=== PATIENT | female | born 1960 | race Caucasian/White ===

== ENCOUNTER 2019-10-29 16:56 | Inpatient (IN) | payer SELFPAY ==
[~2019-10-29] VITALS: Ht 157.5 cm; Wt 37.8 kg
[2019-10-29 17:16] LABS: BASOPHILS % (AUTO) 0.2 % (0.0-5.0); EOSINOPHILS % (AUTO) 0.5 % (0.0-8.0); HEMATOCRIT 39.3 % (36-48); LYMPHOCYTES % (AUTO) 6.3 % (21.0-51.0); MEAN CORPUSCULAR HEMOGLOBIN 30.5 pg (27.0-33.0); MEAN CORPUSCULAR HGB CONC 33.3 g/dL (32.0-36.0); MEAN CORPUSCULAR VOLUME 91.4 fL (79-99); MONOCYTES % (AUTO) 6.8 % (3.0-13.0); NEUTROPHILS % (AUTO) 85.8 % (40.0-77.0); PLATELET COUNT (AUTO) 209 K/uL (130-400); RED CELL DISTRIBUTION WIDTH 13.2 % (11.0-15.5); WHITE BLOOD COUNT (AUTO) 15.1 K/uL (4.8-10.8)
[2019-10-29 17:30] LABS: POTASSIUM 3.7 mmol/L (3.5-5.1)
[2019-10-29] MEDS ORDERED: IPRATROPIUM/ALBUTEROL SULFATE 3 ML SOLUTION IH ONE ×2 (17:43→23:37)
[2019-10-29 17:46] LABS: BAND NEUTROPHILS % (MANUAL) 16 % (0-2); LYMPHOCYTES % (MANUAL) 2 % (22-44); MAN.DIFF COMMENT-IMPRESSION MANUAL DIFFERENTIAL; MONOCYTES % (MANUAL) 4 % (2-9); PLATELET MORPHOLOGY COMMENT ADEQUATE; REACTIVE LYMPHOCYTES 3 % (0-0); SEGMENTED NEUTROPHILS % 75 % (40-70)
[2019-10-29 17:58] LABS: ABG BASE EXCESS -2.1 mmol/L (-2.0-3.0); ABG HCO3 20.5 mmol/L (21.0-28.0); ABG OXYGEN SATURATION 87.6 % (95.0-99.0); ABG PCO2 29 mmHg (32-45)
[2019-10-29] MEDS ORDERED: ACETAMINOPHEN EXTRA STRENGTH 500 MG TABLET ONE (19:38)
[2019-10-29 19:51] LABS: ALBUMIN 3.7 g/dL (3.5-5.0); BILIRUBIN,DIRECT 0.1 mg/dL (0.0-0.3); BILIRUBIN,TOTAL 0.3 mg/dL (0.2-1.0); TOTAL PROTEIN, SERUM 7.8 g/dL (6.0-8.3)
[2019-10-29] MEDS ORDERED: CEFTRIAXONE SODIUM 1 GM ONE (22:28)
[2019-10-29] MEDS ORDERED: AZITHROMYCIN 250 MG TABLET PO ONE (22:29)
[2019-10-29] MEDS: METHYLPREDNISOLONE SOD SUCC 125MG/2ML VIAL IV SCH (23:15)
[2019-10-29] MEDS ORDERED: LACTULOSE 20 GM/30 ML UDCUP PO PRN (23:15)
[2019-10-29] MEDS: CEFTRIAXONE SODIUM 1 GM IV SCH (23:15)
[2019-10-29] MEDS ORDERED: ONDANSETRON HCL 4 MG/2 ML VIAL IV PRN (23:15)
[2019-10-29] MEDS: AZITHROMYCIN 500MG+NS 250ML 250 ML IV SCH (23:15)
[2019-10-29] MEDS ORDERED: METHYLPREDNISOLONE SOD SUCC 40MG/ML 1ML ONE (23:45)
[2019-10-30] MEDS ORDERED: SODIUM CHLORIDE 3% FOR INHALATION 4 ML/AMP VIAL.NEB IH ONE ×2 (00:39→06:10)
[2019-10-30 01:04] VITALS: BP 97/43
[2019-10-30 03:25] VITALS: BP 106/70
[2019-10-30 04:07] LABS: BASOPHILS % (AUTO) 0.2 % (0.0-5.0); EOSINOPHILS % (AUTO) 3.3 % (0.0-8.0); HEMATOCRIT 37.2 % (36-48); LYMPHOCYTES % (AUTO) 2.8 % (21.0-51.0); MEAN CORPUSCULAR HEMOGLOBIN 30.2 pg (27.0-33.0); MEAN CORPUSCULAR HGB CONC 33.3 g/dL (32.0-36.0); MEAN CORPUSCULAR VOLUME 90.5 fL (79-99); MONOCYTES % (AUTO) 3.9 % (3.0-13.0); NEUTROPHILS % (AUTO) 89.5 % (40.0-77.0); PLATELET COUNT (AUTO) 201 K/uL (130-400); RED BLOOD CELL COUNT(AUTO) 4.11 MIL/uL (4.00-5.50); WHITE BLOOD COUNT (AUTO) 11.7 K/uL (4.8-10.8)
[2019-10-30 04:34] LABS: CREATININE 0.8 mg/dL (0.5-1.5)
[2019-10-30] MEDS: IPRATROPIUM/ALBUTEROL SULFATE 3 ML SOLUTION IH SCH ×5 (06:34→23:27)
[2019-10-30] MEDS: METHYLPREDNISOLONE SOD SUCC 125MG/2ML VIAL IV SCH ×3 (06:56→20:26)
[2019-10-30 07:23] VITALS: BP 103/58
[2019-10-30] MEDS: FAMOTIDINE 20MG TAB 20 MG TAB PO SCH ×2 (08:36→20:26)
[2019-10-30] MEDS: ACETAMINOPHEN 325 MG TAB PO PRN ×2 (08:37→16:34)
[2019-10-30] MEDS: ENOXAPARIN SODIUM 30 MG/0.3 ML SQ SCH (08:38)
[2019-10-30 11:00] VITALS: BP 92/52
[2019-10-30 15:00] VITALS: BP 92/58
--- NOTE | 2019-10-30 18:34 | NUR ---
D/C PLAN CM spoke to pt regarding d/c planning. Pt is ind. with ADL's. States spouse can assist in care if needed. Denies having any DME at home. [facility] provided community resources. [place] family and friends that can assist in care if needed. Plan to home. CM to f/u. Addendum: 10/30/19 at 1835 by SHERIN CHONG CM Amended: Links added.
[2019-10-30 19:45] VITALS: BP 86/53
[2019-10-30] MEDS: CEFTRIAXONE SODIUM 1 GM IV SCH (20:26)
[2019-10-30] MEDS: AZITHROMYCIN 500MG+NS 250ML 250 ML IV SCH (20:26)
[2019-10-31] VITALS (7 sets, daily range): BP systolic 86–100; BP diastolic 44–60
[2019-10-31 05:10] LABS: BASOPHILS % (AUTO) 0.1 % (0.0-5.0); HEMATOCRIT 33.9 % (36-48); LYMPHOCYTES % (AUTO) 2.9 % (21.0-51.0); MEAN CORPUSCULAR HEMOGLOBIN 30.6 pg (27.0-33.0); MEAN CORPUSCULAR HGB CONC 33.6 g/dL (32.0-36.0); MEAN CORPUSCULAR VOLUME 90.9 fL (79-99); MONOCYTES % (AUTO) 2.9 % (3.0-13.0); NEUTROPHILS % (AUTO) 93.3 % (40.0-77.0); PLATELET COUNT (AUTO) 202 K/uL (130-400); RED BLOOD CELL COUNT(AUTO) 3.73 MIL/uL (4.00-5.50); RED CELL DISTRIBUTION WIDTH 13.2 % (11.0-15.5); WHITE BLOOD COUNT (AUTO) 12.5 K/uL (4.8-10.8)
[2019-10-31] MEDS: METHYLPREDNISOLONE SOD SUCC 125MG/2ML VIAL IV SCH ×2 (06:04→13:12)
--- NOTE | 2019-10-31 07:15 | NUR ---
RECEIVED PATIENT LAYING ON BED WITH NO C/O SOB. VENTIMASK IS ON. PATIENT VOICED THAT RIGHT AC IV WILSON BUT SHE REFUSED FOR ANOTHER PIV TO BE INSERTED. I FLUSHED THE IV AND LINE HAS GOOD BLOOD RETURN. PATIENT SAID TO LEAVE IV AT THIS TIME. SHE REMAINS ON DROPLET ISOLATION FOR PNEUMONIA. CALL LIGHT WITHIN REACH.
[2019-10-31] MEDS: IPRATROPIUM/ALBUTEROL SULFATE 3 ML SOLUTION IH SCH ×3 (07:51→18:51)
[2019-10-31] MEDS: FAMOTIDINE 20MG TAB 20 MG TAB PO SCH ×2 (09:39→19:57)
[2019-10-31] MEDS: ENOXAPARIN SODIUM 30 MG/0.3 ML SQ SCH (09:39)
[2019-10-31] MEDS: ACETAMINOPHEN 325 MG TAB PO PRN ×3 (09:44→19:57)
--- NOTE | 2019-10-31 12:10 | NUR ---
PATIENT IS STABLE ON 4L PER NASAL CANNULA. WILL CONTINUE TO MONITOR.
[2019-10-31] MEDS ORDERED: LORAZEPAM 2 MG/ML 1 ML VIAL IVP ONE (13:45)
--- NOTE | 2019-10-31 14:02 | NUR ---
RD NOTIFICATION DIET: REGULAR. PO INTAKE 25% AND HAS IMPROVING APPETITE, PER PT. BMI IS 15.5; CLASSIFIED SEVERE UNDERWEIGHT. SHE STATED THAT SHE LOST WEIGHT WHEN HER GOT SICK A COUPLE OF MONTHS AGO. PT STATED WEIGHING 99 POUNDS ABOUT 3 MONTHS AGO AND NOW WEIGHS 84 POUNDS, THAT IS A 15% WEIGHT LOSS CHANGE IN APPROX. 3 MONTHS. PT WITH SEVERE NUTRITION RELATED PHYSICAL SIGNS OF MUSCLE AND FAT LOSS INDICATING SEVERE PROTEIN/ CALORIE MALNUTRITION. RD PROVIDED MALNUTRITION DIET AND NUTRITION EDUCATION AND PROVIDED A LIST OF FOODS HIGH IN CALORIES AND PROTEIN. SHE VERBALIZED UNDERSTANDING. RD ENCOURAGED ENSURE WITH MEALS AND PT AGREED TO CONSUME. RD RECOMMENDS ADD ENSURE TID MALNUTRITION EDU PROVIDED Addendum: 10/31/19 at [address] Amended: Links added.
--- NOTE | 2019-10-31 14:07 | NUR ---
MALNUTRITION EDU COMPLETED DIET: REGULAR. PO INTAKE 25% AND HAS IMPROVING APPETITE, PER PT. BMI IS 15.5; CLASSIFIED SEVERE UNDERWEIGHT. SHE STATED THAT SHE LOST WEIGHT WHEN HER GOT SICK A COUPLE OF MONTHS AGO. PT STATED WEIGHING 99 POUNDS ABOUT 3 MONTHS AGO AND NOW WEIGHS 84 POUNDS, THAT IS A 15% WEIGHT LOSS CHANGE IN APPROX. 3 MONTHS. PT WITH SEVERE NUTRITION RELATED PHYSICAL SIGNS OF MUSCLE AND FAT LOSS INDICATING SEVERE PROTEIN/ CALORIE MALNUTRITION. RD PROVIDED MALNUTRITION DIET AND NUTRITION EDUCATION AND PROVIDED A LIST OF FOODS HIGH IN CALORIES AND PROTEIN. SHE VERBALIZED UNDERSTANDING. RD ENCOURAGED ENSURE WITH MEALS AND PT AGREED TO CONSUME. Addendum: 10/31/19 at [address] Amended: Links added.
[2019-10-31] MEDS: CEFTRIAXONE SODIUM 1 GM IV SCH (19:56)
--- NOTE | 2019-10-31 20:00 | NUR ---
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 INFORMED OF PT TEMP, AND ALSO PT REFUSING AZITHROMYCIN. SHES STATES LAST NIGHT WHEN GIVEN, SHE HAD A HORRIBLE NIGHT DUE TO DIAPHORETIC EPISODES AND MANUEL HER FEEL UNWELL. DUGLAS ORDERED BLOOD CULTURE, AND TO HOLD AZITHROMYCIN FOR TONIGHT AND UPDATE MD IN THE AM.
[2019-10-31] MEDS: AZITHROMYCIN 500MG+NS 250ML 250 ML IV SCH (21:38)
[2019-11-01] MEDS: IPRATROPIUM/ALBUTEROL SULFATE 3 ML SOLUTION IH SCH ×5 (00:07→23:56)
[2019-11-01] MEDS: METHYLPREDNISOLONE SOD SUCC 125MG/2ML VIAL IV SCH (01:46)
[2019-11-01 04:22] VITALS: BP 85/59
[2019-11-01 04:23] LABS: HEMATOCRIT 33.2 % (36-48); MEAN CORPUSCULAR HEMOGLOBIN 30.7 pg (27.0-33.0); MEAN CORPUSCULAR VOLUME 90.2 fL (79-99); PLATELET COUNT (AUTO) 227 K/uL (130-400); RED BLOOD CELL COUNT(AUTO) 3.68 MIL/uL (4.00-5.50); RED CELL DISTRIBUTION WIDTH 13.2 % (11.0-15.5); WHITE BLOOD COUNT (AUTO) 14.4 K/uL (4.8-10.8)
[2019-11-01 04:31] LABS: CREATININE 0.8 mg/dL (0.5-1.5); POTASSIUM 4.1 mmol/L (3.5-5.1)
[2019-11-01 04:46] LABS: BAND NEUTROPHILS % (MANUAL) 4 % (0-2); LYMPHOCYTES % (MANUAL) 3 % (22-44); MAN.DIFF COMMENT-IMPRESSION MANUAL DIFFERENTIAL; MONOCYTES % (MANUAL) 5 % (2-9); PLATELET MORPHOLOGY COMMENT ADEQUATE; SEGMENTED NEUTROPHILS % 88 % (40-70)
[2019-11-01] MEDS: ACETAMINOPHEN 325 MG TAB PO PRN (05:27)
[2019-11-01] MEDS: FAMOTIDINE 20MG TAB 20 MG TAB PO SCH ×2 (07:09→19:50)
[2019-11-01] MEDS: ENOXAPARIN SODIUM 30 MG/0.3 ML SQ SCH (07:10)
--- NOTE | 2019-11-01 07:40 | NUR ---
ASSESSMENT PT IS AAOX3 DENIES CP DENIES SOB DENIES NV AT THIS TIME, RESTING IN BED. NO COMPLAINTS. CALL LIGHT WITHIN REACH.
[2019-11-01 08:12] VITALS: BP 84/50
[2019-11-01] MEDS: CEFTRIAXONE SODIUM 1 GM IV SCH ×2 (11:25→19:49)
[2019-11-01 11:45] VITALS: BP 97/55
[2019-11-01 16:14] VITALS: BP 96/54
--- NOTE | 2019-11-01 18:00 | NUR ---
STATUS DENIES PAIN THROUGHOUT THE DAY. RESTING IN BED. CALL LIGHT WITHIN REACH.
[2019-11-01 19:34] VITALS: BP 91/50
[2019-11-02] VITALS: BP 99/53
[2019-11-02] MEDS: ACETAMINOPHEN 325 MG TAB PO PRN ×2 (01:15→19:53)
[2019-11-02 03:55] LABS: BASOPHILS % (AUTO) 0.2 % (0.0-5.0); EOSINOPHILS % (AUTO) 0.3 % (0.0-8.0); HEMATOCRIT 31.7 % (36-48); LYMPHOCYTES % (AUTO) 6.2 % (21.0-51.0); MEAN CORPUSCULAR HEMOGLOBIN 30.4 pg (27.0-33.0); MEAN CORPUSCULAR HGB CONC 33.8 g/dL (32.0-36.0); MEAN CORPUSCULAR VOLUME 90.1 fL (79-99); MONOCYTES % (AUTO) 5.1 % (3.0-13.0); NEUTROPHILS % (AUTO) 87.1 % (40.0-77.0); PLATELET COUNT (AUTO) 235 K/uL (130-400); RED BLOOD CELL COUNT(AUTO) 3.52 MIL/uL (4.00-5.50); RED CELL DISTRIBUTION WIDTH 13.5 % (11.0-15.5); WHITE BLOOD COUNT (AUTO) 11.5 K/uL (4.8-10.8)
[2019-11-02 03:56] VITALS: BP 97/58
[2019-11-02 04:11] LABS: B-TYPE NATRIURETIC PEPTIDE 181 pg/mL (0-100)
[2019-11-02 04:20] LABS: CREATININE 0.8 mg/dL (0.5-1.5); MAGNESIUM 1.8 mg/dL (1.80-2.40); PHOSPHORUS 2.9 mg/dL (2.5-4.9); POTASSIUM 4.1 mmol/L (3.5-5.1)
[2019-11-02] MEDS: IPRATROPIUM/ALBUTEROL SULFATE 3 ML SOLUTION IH SCH ×6 (06:40→22:17)
--- NOTE | 2019-11-02 07:30 | NUR ---
ASSESSMENT PT IS AAOX3 DENIES CP DENIES SOB DENIES NV AT THIS TIME, RESTING IN BED. HAD SOME SHORTNESS OF BREATH EARLIER WHEN RT ATTEMPTED TO WEAN OFF O2. PT IS ON VENTI MASK. SATURATING LOW TO MID 90S. STATES SHE FEELS BETTER. CALL LIGHT WITHIN REACH.
[2019-11-02] MEDS: FAMOTIDINE 20MG TAB 20 MG TAB PO SCH ×2 (07:42→13:05)
[2019-11-02] MEDS: ENOXAPARIN SODIUM 40 MG/0.4 ML SYRINGE SQ SCH (07:42)
[2019-11-02] MEDS: CEFTRIAXONE SODIUM 1 GM IV SCH (07:42)
[2019-11-02 08:21] VITALS: BP 101/58
[2019-11-02] MEDS ORDERED: PREDNISONE 20 MG TABLET PO SCH (09:00)
[2019-11-02] MEDS ORDERED: SODIUM CHLORIDE 3% FOR INHALATION 4 ML/AMP VIAL.NEB IH ONE (10:12)
[2019-11-02] MEDS ORDERED: SODIUM CHLORIDE 3% FOR INHALATION 4 ML/AMP VIAL.NEB IH SCH (10:15)
--- NOTE | 2019-11-02 10:15 | NUR ---
DR ZAVALA ROUNDED SAW PATIENT ORDERS RECEIVED
[2019-11-02] MEDS: METHYLPREDNISOLONE SOD SUCC 40MG/ML 1ML IVP SCH ×2 (10:33→18:33)
[2019-11-02 11:49] VITALS: BP 99/53
--- NOTE | 2019-11-02 12:45 | NUR ---
Roshni LIEBERMAN SAW PT, ORDERS RECEIVED
[2019-11-02 12:51] LABS: ABG BASE EXCESS 0.8 mmol/L (-2.0-3.0); ABG HCO3 23.5 mmol/L (21.0-28.0); ABG OXYGEN SATURATION 93.8 % (95.0-99.0); ABG PCO2 32 mmHg (32-45)
[2019-11-02] MEDS: ACETYLCYSTEINE 20% 200MG/ML 4ML VIAL IH SCH ×3 (13:37→22:17)
[2019-11-02] MEDS ORDERED: IOHEXOL-350 75 ML VIAL IV ONE (14:39)
[2019-11-02] MEDS: SODIUM CHLORIDE 0.9% 1000ML 1,000 ML IV SCH (15:05)
--- NOTE | 2019-11-02 15:48 | NUR ---
DR HUNTER AND DR ZAVALA ROUNDED UPDATED ON CT ANGIO RESULTS. ORDERS RECEIVED.
[2019-11-02 15:55] VITALS: BP 95/60
[2019-11-02 16:34] LABS: INR 0.87 (0.85-1.15); PARTIAL THROMBOPLASTIN TIME 26.6 SEC (26.3-35.5); PROTHROMBIN TIME 9.2 SEC (9.6-11.6)
[2019-11-02] MEDS ORDERED: HEPARIN SODIUM 5000UNIT/ML 1ML VIAL IJ SCH (16:45)
[2019-11-02] MEDS: HEPARIN 25000 UNITS/250 ML D5W 250 ML IV SCH (16:55)
--- NOTE | 2019-11-02 17:00 | NUR ---
HEPARIN PROTOCOL STARTED PER PROTOCOL REFER TO FLOW SHEET
[2019-11-02 19:45] VITALS: BP 103/52
[2019-11-02] MEDS ORDERED: DOXYCYCLINE HYCLATE 100 MG TABLET PO SCH (21:00)
[2019-11-02] MEDS: CEFAZOLIN SODIUM 1 GM VIAL IVP SCH (21:14)
[2019-11-02] MEDS: MIDODRINE HCL 5 MG TABLET PO SCH (21:14)
[2019-11-02 23:31] LABS: INR 0.9 (0.85-1.15); PROTHROMBIN TIME 9.5 SEC (9.6-11.6)
[2019-11-03] VITALS (7 sets, daily range): BP systolic 97–136; BP diastolic 52–78
[2019-11-03] MEDS: IPRATROPIUM/ALBUTEROL SULFATE 3 ML SOLUTION IH SCH ×6 (02:31→21:19)
[2019-11-03] MEDS: ACETYLCYSTEINE 20% 200MG/ML 4ML VIAL IH SCH ×6 (02:32→21:19)
[2019-11-03] MEDS: METHYLPREDNISOLONE SOD SUCC 40MG/ML 1ML IVP SCH ×3 (02:47→20:21)
[2019-11-03] MEDS: SODIUM CHLORIDE 0.9% 1000ML 1,000 ML IV SCH ×3 (03:35→20:20)
[2019-11-03] MEDS: CEFAZOLIN SODIUM 1 GM VIAL IVP SCH ×3 (05:01→20:20)
[2019-11-03 06:41] LABS: HEMATOCRIT 31.8 % (36-48); MEAN CORPUSCULAR HEMOGLOBIN 29.8 pg (27.0-33.0); MEAN CORPUSCULAR HGB CONC 32.7 g/dL (32.0-36.0); MEAN CORPUSCULAR VOLUME 91.1 fL (79-99); PLATELET COUNT (AUTO) 254 K/uL (130-400); RED BLOOD CELL COUNT(AUTO) 3.49 MIL/uL (4.00-5.50); RED CELL DISTRIBUTION WIDTH 13.5 % (11.0-15.5); WHITE BLOOD COUNT (AUTO) 6.2 K/uL (4.8-10.8)
[2019-11-03 07:07] LABS: B-TYPE NATRIURETIC PEPTIDE 212 pg/mL (0-100)
[2019-11-03] MEDS: BUDESONIDE 0.5 MG/2 ML INH IH SCH ×2 (07:19→19:25)
[2019-11-03] MEDS ORDERED: LEVOFLOXACIN 750 MG/D5W 150 ML 150 ML IV SCH (09:00)
[2019-11-03] MEDS: ENOXAPARIN SODIUM 40 MG/0.4 ML SYRINGE SQ SCH (09:04)
[2019-11-03] MEDS: MIDODRINE HCL 5 MG TABLET PO SCH ×3 (09:04→20:21)
[2019-11-03] MEDS: FAMOTIDINE 20MG TAB 20 MG TAB PO SCH ×2 (09:04→20:21)
[2019-11-03 09:09] LABS: ABG BASE EXCESS 3.2 mmol/L (-2.0-3.0); ABG HCO3 26.2 mmol/L (21.0-28.0); ABG OXYGEN SATURATION 95.1 % (95.0-99.0); ABG PCO2 35 mmHg (32-45)
[2019-11-03 09:33] LABS: CREATININE 0.6 mg/dL (0.5-1.5)
[2019-11-03] MEDS: WARFARIN SODIUM 5 MG TAB PO SCH (16:32)
[2019-11-03 17:36] LABS: INR 0.93 (0.85-1.15); PARTIAL THROMBOPLASTIN TIME 56.7 SEC (26.3-35.5); PROTHROMBIN TIME 9.8 SEC (9.6-11.6)
[2019-11-04] MEDS: ACETAMINOPHEN 325 MG TAB PO PRN ×3 (00:21→16:29)
[2019-11-04 01:15] LABS: INR 0.95 (0.85-1.15); PARTIAL THROMBOPLASTIN TIME 49.9 SEC (26.3-35.5)
[2019-11-04] MEDS: ACETYLCYSTEINE 20% 200MG/ML 4ML VIAL IH SCH ×6 (01:40→21:25)
[2019-11-04] MEDS: IPRATROPIUM/ALBUTEROL SULFATE 3 ML SOLUTION IH SCH ×6 (01:40→21:24)
[2019-11-04 03:53] LABS: BASOPHILS % (AUTO) 0.2 % (0.0-5.0); HEMATOCRIT 31.3 % (36-48); LYMPHOCYTES % (AUTO) 11.2 % (21.0-51.0); MEAN CORPUSCULAR HEMOGLOBIN 29.5 pg (27.0-33.0); MEAN CORPUSCULAR HGB CONC 31.9 g/dL (32.0-36.0); MEAN CORPUSCULAR VOLUME 92.3 fL (79-99); MONOCYTES % (AUTO) 6.6 % (3.0-13.0); NEUTROPHILS % (AUTO) 73.6 % (40.0-77.0); PLATELET COUNT (AUTO) 301 K/uL (130-400); RED BLOOD CELL COUNT(AUTO) 3.39 MIL/uL (4.00-5.50); RED CELL DISTRIBUTION WIDTH 13.5 % (11.0-15.5); WHITE BLOOD COUNT (AUTO) 6.1 K/uL (4.8-10.8)
[2019-11-04 03:55] VITALS: BP 105/52
[2019-11-04 04:07] LABS: PARTIAL THROMBOPLASTIN TIME 53.8 SEC (26.3-35.5); PROTHROMBIN TIME 10.5 SEC (9.6-11.6)
[2019-11-04 04:11] LABS: CREATININE 0.7 mg/dL (0.5-1.5); POTASSIUM 4.3 mmol/L (3.5-5.1)
[2019-11-04] MEDS: CEFAZOLIN SODIUM 1 GM VIAL IVP SCH ×3 (05:27→20:28)
[2019-11-04] MEDS: HEPARIN 25000 UNITS/250 ML D5W 250 ML IV SCH (05:29)
[2019-11-04 07:25] VITALS: BP 108/57
[2019-11-04] MEDS: BUDESONIDE 0.5 MG/2 ML INH IH SCH ×2 (07:35→19:38)
[2019-11-04] MEDS: METHYLPREDNISOLONE SOD SUCC 40MG/ML 1ML IVP SCH ×2 (08:48→20:28)
[2019-11-04] MEDS: MIDODRINE HCL 5 MG TABLET PO SCH ×3 (08:48→20:28)
[2019-11-04] MEDS: FAMOTIDINE 20MG TAB 20 MG TAB PO SCH ×2 (08:48→20:28)
[2019-11-04 11:29] VITALS: BP 113/64
[2019-11-04 15:18] VITALS: BP 108/60
[2019-11-04] MEDS: WARFARIN SODIUM 5 MG TAB PO SCH (16:23)
--- NOTE | 2019-11-04 16:23 | NUR ---
Nutrition education ILANA provided Coumadin Nutrition/Food and Drug Interaction education. ILANA reviewed reference materials. Pt with mulitple questions. RD answered all question. Pt verbalized understanding. Addendum: 11/04/19 at [address] Amended: Links added.
--- NOTE | 2019-11-04 16:27 | NUR ---
RD Follow Up Pt reports improving appetite upon visit. Intake at 50%, no report of GI distress. Pt likes [employer] Ensure. RD provided Coumadin Nutrition/Food and Drug Interaction education. Pt LBM 11/01/19. Pt monitored labs: BG 151, BNP 212. RD to continue to monitor. Please notify RD as additional nutrition concerns arise. thank you. Addendum: 11/04/19 at [address] RD Amended: Links added.
[2019-11-04] MEDS: FUROSEMIDE 10 MG/ML 2ML VIAL IV SCH (18:13)
[2019-11-04 20:00] VITALS: BP 112/57
[2019-11-04 23:32] VITALS: BP 125/67
[2019-11-05] MEDS: IPRATROPIUM/ALBUTEROL SULFATE 3 ML SOLUTION IH SCH ×7 (01:20→23:34)
[2019-11-05] MEDS: ACETYLCYSTEINE 20% 200MG/ML 4ML VIAL IH SCH ×6 (01:20→23:34)
[2019-11-05 03:41] VITALS: BP 110/58
[2019-11-05 03:48] LABS: BASOPHILS % (AUTO) 0.2 % (0.0-5.0); HEMATOCRIT 31.6 % (36-48); LYMPHOCYTES % (AUTO) 10.5 % (21.0-51.0); MEAN CORPUSCULAR HEMOGLOBIN 29.6 pg (27.0-33.0); MEAN CORPUSCULAR HGB CONC 32.6 g/dL (32.0-36.0); MEAN CORPUSCULAR VOLUME 90.8 fL (79-99); MONOCYTES % (AUTO) 8.4 % (3.0-13.0); NEUTROPHILS % (AUTO) 70.1 % (40.0-77.0); PLATELET COUNT (AUTO) 383 K/uL (130-400); RED BLOOD CELL COUNT(AUTO) 3.48 MIL/uL (4.00-5.50); RED CELL DISTRIBUTION WIDTH 13.3 % (11.0-15.5); WHITE BLOOD COUNT (AUTO) 6.2 K/uL (4.8-10.8)
[2019-11-05 04:18] LABS: CREATININE 0.7 mg/dL (0.5-1.5); POTASSIUM 4.1 mmol/L (3.5-5.1); THYROID STIMULATING HORMONE 0.57 uIU/mL (0.36-3.74)
[2019-11-05] MEDS: FUROSEMIDE 10 MG/ML 2ML VIAL IV SCH ×2 (06:05→15:08)
[2019-11-05] MEDS: CEFAZOLIN SODIUM 1 GM VIAL IVP SCH ×3 (06:05→20:17)
[2019-11-05 07:51] VITALS: BP 104/65
--- NOTE | 2019-11-05 08:15 | NUR ---
AM ASSESSMENT PT LAYING IN BED, HOB ELEVATED 30 DEGREES, WATCHING TV. DROPLET ISOLATION. A/O X 3. SON ON EXERTION. NO DISTRESS NOTED. VENTI MASK @ 40%. PT HAS BEEN GETTING OOB TO RESTRM BY HERSELF W/OUT O2. PT HAS TOLERATED WELL. DENIES CHEST PAIN OR DISCOMFORT. DENIES PALPITATIONS. TELE: SR. DENIES N/V AND/OR DIARRHEA. UP W/ASSISTANCE. HEPARIN GTT INFUSING @ 1900 UNITS/HR. INSTRUCTED TO CALL FOR ASSISTANCE. CALL KANG W/IN REACH.
[2019-11-05] MEDS: METHYLPREDNISOLONE SOD SUCC 40MG/ML 1ML IVP SCH ×2 (08:59→20:18)
[2019-11-05] MEDS: MIDODRINE HCL 5 MG TABLET PO SCH ×3 (08:59→20:17)
[2019-11-05] MEDS: FAMOTIDINE 20MG TAB 20 MG TAB PO SCH ×2 (08:59→20:17)
[2019-11-05 11:28] LABS: PARTIAL THROMBOPLASTIN TIME 75.8 SEC (26.3-35.5)
[2019-11-05 11:55] VITALS: BP 110/59
[2019-11-05] MEDS: HEPARIN 25000 UNITS/250 ML D5W 250 ML IV SCH (12:45)
[2019-11-05 12:49] LABS: INR 2.41 (0.85-1.15); PROTHROMBIN TIME 24.5 SEC (9.6-11.6)
--- NOTE | 2019-11-05 15:00 | NUR ---
ANTICOAGULATION INR 2.41. DR ZAVALA NOTIFIED. HEPARIN GTT DC'D @ THIS TIME. COUMADIN DOSE DECREASED TO 4MG PO DAILY. PT UPDATED ON PLAN OF CARE.
[2019-11-05] MEDS: WARFARIN SODIUM 5 MG TAB PO SCH (15:08)
[2019-11-05] MEDS: ACETAMINOPHEN 325 MG TAB PO PRN (15:09)
[2019-11-05 16:00] VITALS: BP 112/56
[2019-11-05] MEDS: BUDESONIDE 0.5 MG/2 ML INH IH SCH (19:07)
[2019-11-05 19:42] VITALS: BP 91/67
[2019-11-06] VITALS (7 sets, daily range): BP systolic 92–117; BP diastolic 54–68
[2019-11-06 05:16] LABS: INR 2.78 (0.85-1.15); PROTHROMBIN TIME 28.1 SEC (9.6-11.6)
[2019-11-06] MEDS: CEFAZOLIN SODIUM 1 GM VIAL IVP SCH (06:17)
[2019-11-06] MEDS ORDERED: FUROSEMIDE 10 MG/ML 2ML VIAL ONE (06:26)
[2019-11-06] MEDS: FUROSEMIDE 10 MG/ML 2ML VIAL IV SCH (06:27)
[2019-11-06] MEDS: ACETYLCYSTEINE 20% 200MG/ML 4ML VIAL IH SCH ×4 (06:55→23:29)
[2019-11-06] MEDS: IPRATROPIUM/ALBUTEROL SULFATE 3 ML SOLUTION IH SCH ×4 (06:55→23:29)
[2019-11-06] MEDS: BUDESONIDE 0.5 MG/2 ML INH IH SCH ×2 (07:19→18:36)
[2019-11-06] MEDS: METHYLPREDNISOLONE SOD SUCC 40MG/ML 1ML IVP SCH ×2 (08:21→22:07)
[2019-11-06] MEDS: MIDODRINE HCL 5 MG TABLET PO SCH ×3 (08:21→22:07)
[2019-11-06] MEDS: FAMOTIDINE 20MG TAB 20 MG TAB PO SCH ×2 (08:21→22:07)
[2019-11-06] MEDS: ACETAMINOPHEN 325 MG TAB PO PRN (10:10)
--- NOTE | 2019-11-06 13:00 | NUR ---
HOSPITALISTS NOTED TO BE ROUNDING ON PATIENT.
--- NOTE | 2019-11-06 13:17 | NUR ---
PATIENT CHANGED TO NASAL CANNULA PER HOSPITALIST. PATIENT STATES THAT SHE IS NOT CURRENTLY SHORT OF BREATH. PATIENT INSTRUCTED TO CALL IF SYMPTOMS WORSEN AND WILL CONTINUE TO MONITOR.
--- NOTE | 2019-11-06 13:47 | NUR ---
o2 SAT = 91% ON 4 L
--- NOTE | 2019-11-06 13:48 | NUR ---
PATIENT WITHOUT COMPLAINTS AND NO DISTRESS NOTED.
[2019-11-06] MEDS: WARFARIN SODIUM 2 MG TAB PO SCH (16:11)
[2019-11-07 03:50] VITALS: BP 103/70
[2019-11-07 03:55] LABS: BASOPHILS % (AUTO) 0.4 % (0.0-5.0); HEMATOCRIT 33.2 % (36-48); LYMPHOCYTES % (AUTO) 10.9 % (21.0-51.0); MEAN CORPUSCULAR HEMOGLOBIN 30.3 pg (27.0-33.0); MEAN CORPUSCULAR HGB CONC 33.1 g/dL (32.0-36.0); MEAN CORPUSCULAR VOLUME 91.5 fL (79-99); MONOCYTES % (AUTO) 5.4 % (3.0-13.0); NEUTROPHILS % (AUTO) 78.1 % (40.0-77.0); NUCLEATED RED BLOOD CELLS 0.3 % (0.0-0.19); PLATELET COUNT (AUTO) 448 K/uL (130-400); RED BLOOD CELL COUNT(AUTO) 3.63 MIL/uL (4.00-5.50); RED CELL DISTRIBUTION WIDTH 13.4 % (11.0-15.5); WHITE BLOOD COUNT (AUTO) 7.8 K/uL (4.8-10.8)
[2019-11-07 04:20] LABS: CREATININE 0.8 mg/dL (0.5-1.5); POTASSIUM 4.6 mmol/L (3.5-5.1)
[2019-11-07] MEDS: ACETYLCYSTEINE 20% 200MG/ML 4ML VIAL IH SCH ×3 (06:27→19:04)
[2019-11-07] MEDS: BUDESONIDE 0.5 MG/2 ML INH IH SCH ×2 (06:28→19:04)
[2019-11-07] MEDS: IPRATROPIUM/ALBUTEROL SULFATE 3 ML SOLUTION IH SCH ×3 (06:28→19:04)
[2019-11-07 08:00] VITALS: BP 90/53
[2019-11-07 08:25] LABS: INR 2.47 (0.85-1.15); PARTIAL THROMBOPLASTIN TIME 30.5 SEC (26.3-35.5)
[2019-11-07] MEDS: FAMOTIDINE 20MG TAB 20 MG TAB PO SCH ×2 (09:11→20:41)
[2019-11-07] MEDS: METHYLPREDNISOLONE SOD SUCC 40MG/ML 1ML IVP SCH ×2 (09:11→20:41)
[2019-11-07] MEDS: MIDODRINE HCL 5 MG TABLET PO SCH ×3 (09:11→20:42)
[2019-11-07] MEDS: ACETAMINOPHEN 325 MG TAB PO PRN (10:31)
[2019-11-07 11:48] VITALS: BP 90/51
[2019-11-07] MEDS: WARFARIN SODIUM 2 MG TAB PO SCH (15:25)
[2019-11-07 15:58] VITALS: BP 93/53
--- NOTE | 2019-11-07 16:52 | NUR ---
Pt. qualified at rest. placed back on 02 @ 4 l/m Pulse 88 02 sat 95 on 4 l/m at rest Addendum: 11/07/19 at 1655 by JAMI MONROY RT Amended: Links added.
[2019-11-07 19:46] VITALS: BP 98/54
[2019-11-07 23:45] VITALS: BP 108/68
[2019-11-08] MEDS: ACETYLCYSTEINE 20% 200MG/ML 4ML VIAL IH SCH ×3 (00:03→11:38)
[2019-11-08] MEDS: IPRATROPIUM/ALBUTEROL SULFATE 3 ML SOLUTION IH SCH ×3 (00:05→11:38)
[2019-11-08 04:00] VITALS: BP 93/53
[2019-11-08] MEDS: ACETAMINOPHEN 325 MG TAB PO PRN (04:21)
[2019-11-08 04:24] LABS: BASOPHILS % (AUTO) 0.1 % (0.0-5.0); HEMATOCRIT 34.1 % (36-48); LYMPHOCYTES % (AUTO) 8.1 % (21.0-51.0); MEAN CORPUSCULAR HEMOGLOBIN 29.4 pg (27.0-33.0); MEAN CORPUSCULAR HGB CONC 31.7 g/dL (32.0-36.0); MEAN CORPUSCULAR VOLUME 92.9 fL (79-99); MONOCYTES % (AUTO) 3.4 % (3.0-13.0); PLATELET COUNT (AUTO) 503 K/uL (130-400); RED BLOOD CELL COUNT(AUTO) 3.67 MIL/uL (4.00-5.50); RED CELL DISTRIBUTION WIDTH 13.4 % (11.0-15.5); WHITE BLOOD COUNT (AUTO) 10.1 K/uL (4.8-10.8)
[2019-11-08 04:35] LABS: CREATININE 0.7 mg/dL (0.5-1.5)
[2019-11-08 07:20] VITALS: BP 94/54
[2019-11-08] MEDS ORDERED: IPRATROPIUM 0.5 MG/2.5 ML INH IH ONE (07:27)
[2019-11-08] MEDS ORDERED: ALBUTEROL SULFATE 0.083% 2.5 MG/3 ML INH IH ONE (07:27)
[2019-11-08] MEDS: BUDESONIDE 0.5 MG/2 ML INH IH SCH (09:00)
[2019-11-08] MEDS: MIDODRINE HCL 5 MG TABLET PO SCH ×2 (09:17→17:14)
[2019-11-08] MEDS: METHYLPREDNISOLONE SOD SUCC 40MG/ML 1ML IVP SCH ×2 (09:17→17:14)
[2019-11-08] MEDS: FAMOTIDINE 20MG TAB 20 MG TAB PO SCH (09:18)
[2019-11-08 11:30] VITALS: BP 96/50
[2019-11-08] MEDS ORDERED: CEFUROXIME AXETIL 250 MG TABLET PO SCH (13:15)
[2019-11-08] MEDS ORDERED: BUDE0.5A3 IH (14:17)
[2019-11-08] MEDS ORDERED: Midodrine Hcl PO (14:17)
[2019-11-08] MEDS ORDERED: FAMO20TA8 PO (14:17)
[2019-11-08] MEDS ORDERED: CEFU500T67 PO (14:17)
[2019-11-08] MEDS ORDERED: WARF2TAB57 PO (14:17)
[2019-11-08] MEDS ORDERED: IPRA3AMP24 IH (14:17)
[2019-11-08 15:30] VITALS: BP 99/53
[2019-11-08] MEDS: WARFARIN SODIUM 2 MG TAB PO SCH (16:44)
[2019-11-08] MEDS ORDERED: PRED20TA3 PO (17:52)
--- NOTE | 2019-11-09 09:08 | NUR ---
[facility] PLAN PATIENT VISITING FROM [facility]. GOT TANKS FOR SAID FELT SAFE TO RETURN HOME. Addendum: 11/09/19 at 0910 by CODY SOSA RN CM Amended: Links added.
--- NOTE | 2019-11-09 09:09 | NUR ---
DC PLAN PATIENT SELF PAY NEEDED OXYGEN. SPOUSE TRIED SEVERAL THINGS FOUND A WAY TO GET O2 FOR . SAID WILL BE SAFE TO GO HOME. Addendum: 11/09/19 at 0910 by CODY SOSA RN CM Amended: Links added.
== END 2019-11-08 18:00 | disposition home or self-care (01) | DRG 871 ==
LOC: EDH 16:56 → EDHIP 16:57 → 2DH 10-30 00:39
PROVIDERS: ADMIT Family Medicine; ATTEND Family Medicine
DX: A41.01 Sepsis due to Methicillin susceptible Staphylococcus aureus (principal); J96.01 Acute respiratory failure with hypoxia; J15.211 Pneumonia due to Methicillin susceptible Staphylococcus aureus; J15.6 Pneumonia due to other Gram-negative bacteria; I26.99 Other pulmonary embolism without acute cor pulmonale; E87.1 Hypo-osmolality and hyponatremia; J44.0 Chronic obstructive pulmonary disease with (acute) lower respiratory infection; J44.1 Chronic obstructive pulmonary disease with (acute) exacerbation; A41.50 Gram-negative sepsis, unspecified; F17.210 Nicotine dependence, cigarettes, uncomplicated; Z88.0 Allergy status to penicillin; Z88.8 Allergy status to other drugs, medicaments and biological substances; Z88.1 Allergy status to other antibiotic agents; Z79.01 Long term (current) use of anticoagulants
CPT/HCPCS: 36415; 36600; 71045; 71046; 71275; 80048; 80076; 82435; 82550; 82803; 82947; 83540; 83550; 83605; 83735; 83880; 84100; 84132; 84145; 84295; 84443; 84484; 85018; 85025; 85027; 85610; 85730; 86738; 87040; 87071; 87077; 87186; 87205; 87449; 87804; 93005; 93306; 94640; 94664; 94667; 94668; 94760; G0378; J0456; J0690; J0696; J1644; J1650; J1940; J1956; J2060; J2920; J2930; J7030; J7608; Q9967